=== PATIENT | female | born 1955 | race Caucasian/White ===

== ENCOUNTER 2016-06-18 06:48 | Day surgery (SDC) | payer OTHER ==
[2016-06-18] MEDS ORDERED: Lactated Ringers 1,000 ML IV SCH (07:00)
[2016-06-18] MEDS ORDERED: DIPRIVAN 200 MG/20 ML IV ONE (08:00)
[2016-06-18] MEDS ORDERED: Versed 2 MG/2 ML Injection IV ONE (08:00)
[2016-06-18] MEDS ORDERED: SUBLIMAZE 100 MCG/2 ML IV ONE (08:00)
[2016-06-18] MEDS ORDERED: LIDOCAINE HCL 2% 100 MG/5 ML IJ ONE (08:00)
--- NOTE | 2016-06-18 10:49 | OP ---
SURGERY DATE/TIME: 06/18/2016 0845 PREOPERATIVE DIAGNOSIS: Lower abdominal pain. POSTOPERATIVE DIAGNOSIS: Cecal polyp x1. PROCEDURE: Colonoscopy. SURGEON: Guillermo Patino M.D. ANESTHESIA: MAC by Moncho Gonsalves CRNA. ESTIMATED BLOOD LOSS: Minimal. SPECIMENS: One cold forceps polypectomy of cecal polyp. DESCRIPTION OF PROCEDURE: After informed written consent was obtained, the patient was taken to the endoscopy suite. She underwent monitored anesthesia and digital rectal exam showed normal sphincter tone and no internal lesions. The scope was then inserted in the rectum and sequentially the entire colonic mucosa was traversed. The level of cecum was reached and verified with direct visualization of ileocecal valve. Upon withdrawal careful mucosal inspection revealed no obvious abnormalities other than a small sessile polyp in the pericecal region. This was removed in its entirety with cold forceps and sent to pathology testing. The remainder of the exam was unremarkable. Prior to withdrawal retroflexion was performed and within normal limits. The prep was noted to be fair. The scope was removed and the patient was transferred to the recovery room in excellent condition.
[2016-06-18 11:04] VITALS: BP 133/51; PULSE 61; O2SAT 99
== END 2016-06-18 09:49 | disposition home or self-care (01) ==
LOC: SDC 06:48
PROVIDERS: ATTEND Family Medicine
PROC: 0DBH8ZX Excision of Cecum, Via Natural or Artificial Opening Endoscopic, Diagnostic (ICD-10-PCS; principal; 2016-06-18)
DX: D12.0 Benign neoplasm of cecum (principal)
CPT/HCPCS: 00810; 36415; 88305; J2250; J2704; J3010

== ENCOUNTER 2021-10-10 10:56 | Day surgery (SDC) | payer MEDICARE, OTHER ==
--- NOTE | 2021-10-08 09:38 | HP ---
DATE OF SURGERY: 10/10/2021 HISTORY OF PRESENT ILLNESS: The patient presents with an abnormal CT scan. The patient had CT scan on the abdomen demonstrating a cystic mass measuring 3 x 3 x 3.3 cm, was not contiguous with a sigmoid or other solid organ. 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 The patient has had a total abdominal hysterectomy and bilateral salpingo-oophorectomy about 10 to 12 years ago. The patient also has some history of diverticular disease in the past. The patient is here for surgical intervention. PAST MEDICAL HISTORY: Hypertension, depression. PAST SURGICAL HISTORY: Total abdominal hysterectomy, bilateral salpingo-oophorectomy. ALLERGIES: NKDA. MEDICATIONS: Alprazolam, aspirin, Lexapro, Flonase, lisinopril. FAMILY HISTORY: Diabetes, hypertension. SOCIAL HISTORY: None reported. REVIEW OF SYSTEMS: CONSTITUTIONAL: Denies fever or chills. CHEST: Denies shortness of breath. CVS: Denies chest pain. ABDOMEN: Denies abdominal pain, nausea, vomiting, diarrhea, constipation or rectal bleeding. PHYSICAL EXAMINATION: GENERAL: No acute distress. CHEST: Nonlabored. No shortness of breath. CVS: Regular rate and rhythm. ABDOMEN: Soft, nontender. IMPRESSION: The patient with an abnormal CT scan showing an about 3 x 3 cm cystic mass lesion in the right lower quadrant. PLAN: Laparoscopic removal of cystic mass right lower quadrant possible open with Dr. Emil Beard. As dictated by Idalmis Swartz NP.
[~2021-10-10 10:56] MED LIST: Lactated Ringers 1,000 ML IV ONE; Lactated Ringers 1,000 ML IV SCH; Sensorcaine 0.25% 10 ML ONE
[2021-10-10] MEDS ORDERED: Lactated Ringers 1,000 ML IV ONE ×2 (11:08→15:38)
[2021-10-10 11:24] LABS: Hemoglobin 13.9 gm/dl (12.0-16.0); Mean Cell Volume 95.9 fl (78-100); Mean Corpuscular Hemoglobin 31.7 pg (26-32); Mean Corpuscular Hgb Concent. 33.1 g/dl (32-36); Mean Platelet Volume 9.9 fl (7.5-11.0); Platelet Count 212 K/mm3 (150-450); Red Blood Count 4.38 M/mm3 (4.1-5.4); Red Cell Distribution Width 13.4 % (11.5-14.0); White Blood Count 3.6 K/mm3 (4.0-10.5)
[2021-10-10] MEDS ORDERED: MEFOXIN 2 GM PREMIX** 2 GM/50 ML ML IV ONE (13:56)
[2021-10-10 15:06] LABS: ABO TYPING AB; Antibody Screen NEGATIVE (NEGATIVE); RH TYPING POSITIVE
[2021-10-10 15:58] VITALS: BP 119/58; PULSE 60; O2SAT 98
[2021-10-10 20:09] LABS: Mucus SLIGHT /HPF (NEGATIVE); RBC 0-2 /HPF (0-2); WBC 0-2 /HPF (0-5)
[2021-10-10 20:14] LABS: Appearance CLEAR (CLEAR); Bilirubin NEGATIVE (NEGATIVE); Glucose NEGATIVE (NEGATIVE); Ketones SMALL-15 (NEGATIVE); Nitrite NEGATIVE (NEGATIVE); Ph 6.5 (5-6); Protein,Urine Dip NEGATIVE (Negative); RBC TRACE-INTACT Ery/ul (0-5); Specific Gravity 1.025 (1.005-1.025); Urobilinogen 0.2 mg/dL (0-1)
[2021-10-10 20:18] LABS: Dipstick done @ ? MAIN LAB
--- NOTE | 2021-10-11 08:37 | OP ---
SURGERY DATE/TIME: 10/10/2021 1352 PREOPERATIVE DIAGNOSIS: Right pelvic/abdominal mass. POSTOPERATIVE DIAGNOSIS: Right pelvic wall/abdominal mass. PROCEDURE: Right pelvic wall/abdominal mass resection with laparoscopic exam and laparoscopic resection. SURGEON: Emil Beard M.D. ANESTHESIA: General. COMPLICATIONS: None. CONDITION: Stable. INDICATION: A patient with the above cystic mass in the pelvis unclear etiology. DESCRIPTION OF PROCEDURE: Taken to surgery. General anesthetic. Routine prep and drape. Laparoscope is placed. Good visualization. There is a 4 cm cystic mass on the right pelvic side wall. It is a little above and behind the adnexa area. The peritoneum is scored. It is delivered intact. It is placed in a bag. It is removed. The field was dry. Hole closure device used at the 12 port at the umbilicus. Skin closed with 4-0 Vicryl and Steri-Strips. The patient tolerated the procedure tolerated the procedure satisfactorily.
== END 2021-10-10 16:05 | disposition home or self-care (01) ==
LOC: SDC 10:56
PROVIDERS: ATTEND Surgery
DX: N83.201 Unspecified ovarian cyst, right side (principal); R19.03 Right lower quadrant abdominal swelling, mass and lump
CPT/HCPCS: 36415; 81001; 85027; 86850; 86900; 86901; 87086; 93005; J0694

== ENCOUNTER 2023-08-26 05:51 | Day surgery (SDC) | payer MEDICARE ==
[2023-08-26] MEDS ORDERED: celeBREX 100 MG ONE (06:24)
[2023-08-26] MEDS ORDERED: TYLENOL EXTRA STRENGTH 500 MG ONE (06:24)
[2023-08-26] MEDS ORDERED: Transderm Scop 1.5MG Patch ONE (06:24)
[2023-08-26] MEDS ORDERED: NEURONTIN ONE (06:24)
[2023-08-26] MEDS ORDERED: Lactated Ringers 1,000 ML IV ONE (06:24)
[2023-08-26] MEDS ORDERED: Decadron 4 MG ONE (06:24)
[2023-08-26] MEDS ORDERED: CEFAZOLIN 2 GM-D5W BAG** 2 GM/50 ML ML IV ONE (06:24)
[2023-08-26] MEDS: TYLENOL EXTRA STRENGTH 500 MG PO ONE (06:26)
[2023-08-26] MEDS: NEURONTIN PO ONE (06:26)
[2023-08-26] MEDS: Transderm Scop 1.5MG Patch TOP ONE (06:27)
[2023-08-26] MEDS: Decadron 4 MG PO ONE (06:27)
[2023-08-26] MEDS: celeBREX 100 MG PO ONE (06:27)
[2023-08-26] MEDS ORDERED: Lactated Ringers 1,000 ML IV SCH (06:30)
[2023-08-26 06:40] VITALS: RESP 18
[2023-08-26] MEDS: Lactated Ringers 1,000 ML IV SCH (06:42)
[2023-08-26] MEDS: CEFAZOLIN 2 GM-D5W BAG** 2 GM/50 ML ML IV ONE (06:43)
[2023-08-26] MEDS ORDERED: Xylocaine-Mpf 2% 5 Ml Vial ONE (07:47)
[2023-08-26] MEDS ORDERED: DIPRIVAN 200 MG/20 ML IV ONE (07:47)
[2023-08-26] MEDS ORDERED: Versed 2 MG/2 ML Injection ONE (07:48)
[2023-08-26] MEDS ORDERED: Decadron 4 MG INJ ONE (07:48)
[2023-08-26] MEDS ORDERED: SUBLIMAZE 100 MCG/2 ML ONE (07:48)
[2023-08-26] MEDS ORDERED: Zofran 4 MG/2 ML VIAL ONE ×2 (07:48→08:52)
[2023-08-26] MEDS ORDERED: DEXMEDETOMIDINE 80 MCG/20ML-NS IV ONE (07:48)
[2023-08-26] MEDS ORDERED: Marcaine Mpf 0.5% Vial 30 Ml ONE (07:55)
[2023-08-26] MEDS ORDERED: Epinephrine Preservative Free 1 MG/ML ONE (07:55)
[2023-08-26] MEDS ORDERED: Ephedrine Sulfate 50 MG/ML ONE (08:22)
[2023-08-26 09:39] VITALS: TEMP 97
[2023-08-26 10:08] VITALS: BP 118/99; PULSE 65; O2SAT 94
--- NOTE | 2023-08-26 14:31 | OP ---
SURGERY DATE/TIME: 08/26/2023 0809 PREOPERATIVE DIAGNOSIS: Torn right medial and lateral menisci. POSTOPERATIVE DIAGNOSIS: Torn right medial and lateral menisci. PROCEDURE: Arthroscopy of the right knee with partial medial and lateral meniscectomy. SURGEON: Russ Enriquez II, D.O. ANESTHESIA: General. DESCRIPTION OF PROCEDURE: The patient was identified and informed consent was obtained. The patient was then taken to the operative suite where the general anesthetic was administered. The leg was then placed into a knee chase after a tourniquet had been placed onto the thigh. The right lower extremity was then prepped and draped in the usual sterile fashion and a standard time out was taken. Following this, the leg was exsanguinated and the tourniquet elevated to 350 mm of Mercury. An inferior lateral portal was created with an 11 blade. Trocar and cannula placed into the joint and the joint was distended with arthroscopic pump. The arthroscope is then placed in through the cannula. The scope was placed in the medial compartment where 18 gauge spinal needle identified the level for the inframedial portal which was also created with an 11 blade. The knee was then inspected in systematic fashion beginning in the suprapatellar pouch where there was no evidence of loose bodies or synovial hypertrophy. The patella was noted to seat nicely within the femoral groove at about 30 degrees of flexion and there was no significant degenerative or chondromalacia changes. The patient had no evidence of plica and the gutters were inspected and there were no loose bodies or synovial hypertrophy. The scope was then placed into the medial compartment where the medial meniscus was probed throughout its entirety. A degenerative tear was noted along the junction of the middle and posterior horn was resected with handheld biting instrument shaved to a smooth transition with a shaver. No significant chondromalacia was noted. A very small area where the patient had been walking on the tear was noted and this was incidentally shaved. The meniscus was then reprobed and both the upper and under surfaces noted to be intact. The scope was placed in the intercondylar notch region where the anterior cruciate ligament was noted to be intact. The scope was then placed into the lateral compartment where degenerative tearing was noted in the posterior horn of the lateral meniscus as well as fraying tear in the body along the inner surface. At this point, the shaver is utilized to trim the frayed tear of the lateral meniscus to a nice smooth transition. At this point, the femoral condyle and tibial plateau were noted to have no significant degenerative changes or chondromalacia. The meniscus is then reprobed and noted to have no further evidence of tearing. The knee was then copiously irrigated and re-inspected. No further pathology was identified. The knee was infiltrated with 30 cc of 0.25% Marcaine with epinephrine. The portal sites were then closed with interrupted 4-0 Nylon suture, Adaptic, 4x4 and a standard postoperative arthroscopy dressing applied. The patient was then transferred to the cart and taken to the postoperative anesthesia care unit in satisfactory condition having tolerated the procedure well.
== END 2023-08-26 10:15 | disposition home or self-care (01) ==
LOC: SDC 05:51
PROVIDERS: ATTEND Orthopaedic Surgery
DX: S83.281A Other tear of lateral meniscus, current injury, right knee, initial encounter (principal); S83.241A Other tear of medial meniscus, current injury, right knee, initial encounter
CPT/HCPCS: 29880; J0171; J0690; J1100; J2250; J2405; J2704; J3010; A9270-GY